=== PATIENT | male | born 1965 | race Caucasian/White ===

== ENCOUNTER 2018-03-28 18:09 | Emergency (ER) | payer OTHER ==
[~2018-03-28] VITALS: Ht 177.8 cm; Wt 54.4 kg
[2018-03-28] MEDS ORDERED: TYLENOL325 MG PO (19:22)
[2018-03-28 19:26] VITALS: BP 151/80
== END 2018-03-28 19:29 | disposition home or self-care (01) ==
LOC: ER 18:09
DX: N50.811 Right testicular pain (principal); Z88.5 Allergy status to narcotic agent; Z88.0 Allergy status to penicillin